=== PATIENT | male | born 1985 | race Caucasian/White ===

== ENCOUNTER 2019-06-17 06:35 | Day surgery (SDC) | payer MEDICAID ==
[2019-06-17] MEDS ORDERED: Lactated Ringers 1,000 ML IV ONE (06:36)
[2019-06-17] MEDS ORDERED: cefOXitin 1 GM Vial IVPUSH ONE (06:36)
[2019-06-17] MEDS ORDERED: Midazolam 1 MG/ML 2 ML SDV IV ONE (06:36)
[2019-06-17] MEDS ORDERED: Dexamethasone 4 MG/ML 5 ML MDV IVPUSH ONE (06:36)
[2019-06-17] MEDS ORDERED: Ketorolac 30 MG/ML SDV IVPUSH ONE (06:36)
[2019-06-17] MEDS ORDERED: fentaNYL 100 MCG/2 ML SDV IV ONE (06:36)
[2019-06-17] MEDS ORDERED: Scopolamine 1.5 MG Transdermal Patch TOP ONE (06:36)
[2019-06-17] MEDS ORDERED: Ondansetron 4 MG/2 ML SDV IVPUSH ONE (06:36)
[2019-06-17] MEDS ORDERED: Propofol 200 MG/20 ML SDV IV ONE (06:36)
[2019-06-17] MEDS ORDERED: HYDROmorphone 2 MG/ML SDV IV ONE (06:36)
[2019-06-17] MEDS ORDERED: Sugammadex Sodium 200 MG/2 ML VIAL IV ONE (06:36)
[2019-06-17] MEDS ORDERED: Rocuronium 100 MG/10 ML MDV IV ONE (06:36)
[2019-06-17] MEDS ORDERED: Sodium Chloride 0.9% 10 ML Syringe FLUSH PRN (06:45)
[2019-06-17] MEDS ORDERED: Lactated Ringers 1,000 ML IV SCH (06:45)
--- NOTE | 2019-06-17 10:22 | PCM.HPR ---
H & P Addendum review - H & P Addendum Review Date of Original H & P: 06/12/19 Date Reviewed: 06/17/19 Time Reviewed: 08:00 Patient was Examined: No Changes
--- NOTE | 2019-06-17 10:26 | PCM.OPNOTE ---
- General Post-Op/Procedure Note Date of Surgery/Procedure: 06/17/19 Operative Procedure(s): Lap Romana Findings: Acute and Chronic Cholecystitis; cholelithiasis Pre Op Diagnosis: Symptomatic Cholelithiasis Post-Op Diagnosis: Above Anesthesia Technique: General ET Tube Primary Surgeon: Jewel Ambriz Anesthesia Provider: Elian Solis Pathology: Gall Bladder; Cultures EBL in mLs: 200 Complications: None Condition: Good
[2019-06-17] MEDS ORDERED: Acetaminophen/HYDROcodone 325-5 MG Tab PO PRN (10:28)
[2019-06-17] MEDS ORDERED: Morphine 2 MG/ML Syringe IVPUSH PRN (10:29)
[2019-06-17] MEDS ORDERED: hydrOXYzine HCl 25 MG Tab PO PRN (10:56)
--- NOTE | 2019-06-17 13:31 | OR ---
DATE OF OPERATION: 06/17/2019 SURGEON: Jewel Ambriz MD PREOPERATIVE DIAGNOSIS: Symptomatic cholelithiasis. POSTOPERATIVE DIAGNOSIS: Acute and chronic cholecystitis with cholelithiasis. ANESTHESIA: General. DESCRIPTION OF PROCEDURE: The patient was brought to the operating room, where general endotracheal anesthesia was administered. The abdomen was prepped with ChloraPrep and draped sterilely. An infraumbilical incision was made and extended into the peritoneal cavity without difficulty. The Noah cannulator was introduced and pneumoperitoneum obtained. The remaining three 5 mm ports were placed in the usual positions. The patient was placed in reverse Trendelenburg position and rotated to the left. There were some omental adhesions up to the falciform ligament that were taken down with blunt dissection to totally expose the gallbladder. This was enlarged, edematous, and tense and could not be grasped. 40 mL of bile were aspirated to allow it to be grasped. This will be sent for culture. The gallbladder was retracted cephalad and a very difficult dissection undertaken to separate the structures. Initially, I was able to find the cystic artery and follow this onto the gallbladder, which was doubly clipped proximally, once distally, and then transected. Careful slow dissection around the base of the gallbladder was then taken to separate this from dense fibrotic tissue. The cystic duct was densely adhered to the base of the gallbladder and this was bluntly dissected free and any adhesive bands cauterized. There was diffuse oozing throughout the case, but no significant bleeding. After I was able to clear off the lower one-third of the gallbladder, I continued dissecting further onto the cystic duct, which then became easier as I got past the inflammation. There were many stones palpable in the base of the gallbladder that were milked back into the gallbladder. After all structures were clearly identified and the gallbladder, cystic duct, and window behind the gallbladder were clearly identified, the cystic duct was doubly clipped proximally and once distally and then transected. The gallbladder was then removed from the bed of the liver with electrocautery with some difficulty as it was difficult to find the plane between the gallbladder and liver. Towards the top, I did make a hole in the gallbladder with some additional bile leakage, which was irrigated and suctioned. No stones were lost. Once the gallbladder was completely freed up, it was placed in an Endopouch and brought out through the umbilical port site. The right upper quadrant was thoroughly irrigated and liver bed cauterized where any oozing was occurring. I did place a piece of Nu-Knit Surgicel in the gallbladder bed of the liver. A total of 1 L of irrigation was used. Return was clear and hemostasis assured. Ports were removed under direct vision and remained hemostatic. Umbilical fascia was closed with [id number] 0 Vicryl. Skin was closed with 4-0 Vicryl subcuticular sutures. Benzoin and Steri-Strips were placed and Band-Aids applied. The patient tolerated the procedure well. Estimated blood loss is 200 mL. He returned to Postanesthesia in stable condition. /[id number] YOLA/YOSSI
== END 2019-06-17 12:20 | disposition home or self-care (01) ==
LOC: FB.SDS 06:35
PROVIDERS: ATTEND Surgery
DX: K80.12 Calculus of gallbladder with acute and chronic cholecystitis without obstruction (principal); F41.9 Anxiety disorder, unspecified; F32.9 Major depressive disorder, single episode, unspecified; F17.210 Nicotine dependence, cigarettes, uncomplicated; Z79.899 Other long term (current) drug therapy
CPT/HCPCS: 87070; 87205; 88304; A9270-GY; J0694; J1100; J1170; J1885; J2250; J2405; J2704; J3010; J3490; J7120